=== PATIENT | male | born 1995 | race Caucasian/White ===

== ENCOUNTER 2020-11-27 15:35 | Outpatient (REF) | payer OTHER, SELFPAY ==
--- NOTE | 2020-11-27 17:15 | PFT_ITS ---
INDICATION: Respiratory disease. SPIROMETRY: The FEV1 to FVC 86% with an FEV1 of 5.11 L, which is 105% predicted, an FVC of 5.93 L, which is 103% predicted. No significant response to bronchodilators noted. Maximum voluntary ventilation 103% predicted. LUNG VOLUMES: Total lung capacity 102% predicted. DIFFUSION CAPACITY: DLCO 122% predicted. COMPARISONS: None. Flow volume loop is perfect. INTERPRETATION: No obstructive nor restrictive ventilatory defects identified. No significant response to bronchodilators noted. Normal maximum voluntary ventilation, normal lung volumes, and normal diffusion capacity. This is consistent with normal lung mechanics. If asthma is in the differential, methacholine challenge may be helpful in assessing for hyper-reactive airways, otherwise clinical correlation warranted. Aly Recinos MD MR/MODL / [id number]
== END 2020-11-27 15:36 | disposition home or self-care (01) ==
LOC: HO.RESP 15:35
PROVIDERS: PCP Family Medicine; Visit Provider Family Medicine
DX: Z87.09 Personal history of other diseases of the respiratory system (principal)
CPT/HCPCS: 94060; 94727; 94729

== ENCOUNTER 2021-02-25 11:38 | Outpatient (REF) | payer OTHER, SELFPAY ==
[2021-02-25 14:27] LABS: Alanine Aminotransferase 20 U/L (0-40); Albumin Level 4.8 g/dL (3.5-5.0); Alkaline Phosphatase 52 U/L (39-117); Anion Gap 13 (12-20); Aspartate Amino Transferase 21 U/L (5-37); Bilirubin Total 0.7 mg/dL (0.0-1.0); Blood Urea Nitrogen 16 mg/dL (9-16); Calcium 9.9 mg/dL (8.4-10.2); Carbon Dioxide 26 mmol/L (22-29); Chloride 106 mmol/L (96-108); Cholesterol 139 mg/dL; Estimated Glomerular Filt Rate > 60; Glucose Fasting 85 mg/dL (60-99); HDL Cholesterol 60 mg/dL; LDL Cholesterol Calculated 73 mg/dl; Sodium 141 mmol/L (135-145); Total Protein 7.1 g/dL (6.5-8.0); Triglycerides 30 mg/dL
[2021-02-25 14:48] LABS: TSH reflex Free T4 1.05 uIU/mL (0.32-4.0)
== END 2021-02-25 11:39 | disposition home or self-care (01) ==
LOC: HO.WFDLDS 11:38
PROVIDERS: Visit Provider Family Medicine
DX: Z00.00 Encounter for general adult medical examination without abnormal findings (principal); Z13.29 Encounter for screening for other suspected endocrine disorder; Z13.220 Encounter for screening for lipoid disorders
CPT/HCPCS: 36415; 80053; 80061; 84443